=== PATIENT | female | born 1995 | race Caucasian/White ===

== ENCOUNTER 2019-12-27 13:58 | Outpatient (CLI) | payer OTHER, SELFPAY ==
--- NOTE | ~2019-12-27 | US_ITS ---
US pelvic complete w TV DATE: 12/27/2019 14:47 INDICATION: Irregular menstruation TECHNIQUE: Real-time imaging via transabdominal and transvaginal approaches COMPARISON: None FINDINGS: The uterus measures 7.8 cm height, 4.4 cm transverse and 3.6 cm anteroposterior dimension. The central endometrial stripe measures approximately 6 mm AP dimension. The right ovary measures 3.3 x 2.9 x 2.8 cm, with vascular flow. There are multiple small cyst. The left ovary measures 3.3 x 2.6 x 2.6 x 2.6 cm, with vascular flow. There are multiple small ovaria n cysts. IMPRESSION: Bilateral small ovarian cysts Reviewed, dictated and finalized at [facility]. Reviewed, dictated and finalized at [facility]. [facility]
[2019-12-27 15:38] LABS: Hematocrit 42.1 % (37.0-47.0); Hemoglobin 13.4 g/dL (12.0-15.0); Mean Corpuscular HGB Conc 31.8 g/dl (32-36); Mean Corpuscular Hemoglobin 29.4 pg (26-34); Mean Corpuscular Volume 92.3 fl (80-100); Mean Platelet Volume 11.9 fl (7.4-10.4); Platelet Count Result 270 k/mm3 (150-375); Red Blood Count 4.56 M/mm3 (4.2-5.4); Red Cell Distribution Width 12.7 % (11.5-14.5)
[2019-12-27 16:07] LABS: Beta HCG Quantitative < 2.39 mIU/ML
[2019-12-27 16:35] LABS: Hemoglobin A1C 4.9 % (<5.7)
[2019-12-30 10:55] LABS: DHEA-Sulfate 105 mcg/dL (18-391)
[2019-12-30 14:24] LABS: Testosterone Total 43 ng/dL (2-45)
[2019-12-31 14:48] LABS: LH 13.5 mIU/mL (***); Prolactin 9.2 ng/mL (***)
[2020-01-01 05:14] LABS: Insulin Level Total 19.9 uIU/mL (<=19.6); Testosterone Free 4.9 pg/mL (0.2-5.0)
[2020-01-02 12:35] LABS: FSH 4.6 mIU/mL (***)
== END 2019-12-27 13:59 | disposition home or self-care (01) ==
PROVIDERS: Visit Provider Student in an Organized Health Care Education/Training Program
DX: N92.6 Irregular menstruation, unspecified (principal); N83.202 Unspecified ovarian cyst, left side; N83.201 Unspecified ovarian cyst, right side
CPT/HCPCS: 36415; 76830; 76856; 82627; 83001; 83002; 83036; 83498; 83525; 84146; 84402; 84403; 84443; 84702; 85027

== ENCOUNTER 2020-07-22 09:21 | Outpatient (CLI) | payer OTHER, SELFPAY | END 2020-07-22 09:22 | disposition home or self-care (01) | PROVIDERS: Visit Provider Student in an Organized Health Care Education/Training Program | DX: R89.9 Unspecified abnormal finding in specimens from other organs, systems and tissues (principal); N92.6 Irregular menstruation, unspecified | CPT/HCPCS: 36415; 83525 ==